=== PATIENT | female | born 1970 | race Caucasian/White ===

== ENCOUNTER 2023-08-12 07:22 | Emergency (ER) | payer MEDICAID ==
[~2023-08-12] VITALS: Ht 160 cm; Wt 83.5 kg
[2023-08-12 07:49] VITALS: BP_SYST 125; PULSE 118; RESP 20; TEMP 100.4; O2SAT 97
[2023-08-12 08:29] LABS: STREPTOCOCCUS A SCREEN (RAPID) POSITIVE (NEGATIVE)
[2023-08-12] MEDS: PENICILLIN G BENZATHINE 1.2 MMU/2 ML SYR IM ONE (08:30)
[2023-08-12 08:33] LABS: COVID19 ANTIGEN SOFIA FIA NEGATIVE (NEGATIVE); INFLUENZA TYPE A NEGATIVE (NEGATIVE); INFLUENZA TYPE B NEGATIVE (NEGATIVE)
[2023-08-12] MEDS: DEXAMETHASONE SOD PHOSPHATE 4 MG/ML VIAL IVP ONE (08:43)
[2023-08-12] MEDS: NACL 0.9% 1,000 ML IV ONE ×2 (08:43→11:39)
[2023-08-12] MEDS ORDERED: PENI250T2 PO (09:11)
[2023-08-12] MEDS: ACETAMINOPHEN 325 MG TABLET PO ONE (09:15)
[2023-08-12] MEDS ORDERED: KETOROLAC TROMETHAMINE 15 MG VIAL ONE (09:31)
[2023-08-12] MEDS: KETOROLAC TROMETHAMINE 15 MG VIAL IVP ONE (09:34)
[2023-08-12 11:42] VITALS: BP_SYST 128; PULSE 105; RESP 20; TEMP 98.2; O2SAT 98
== END 2023-08-12 11:38 | disposition home or self-care (01) ==
LOC: SED 07:22
DX: J03.90 Acute tonsillitis, unspecified (principal); E86.0 Dehydration; Z79.899 Other long term (current) drug therapy; Z20.822 Contact with and (suspected) exposure to COVID-19
CPT/HCPCS: 99285; 96374; 71045; 96361; 96375; 87426; 86403; 36415; 87804 ×2; J1100; J1885; J7030; 82948